=== PATIENT | male | born 1955 | race Caucasian/White ===

== ENCOUNTER 2016-08-28 20:33 | Emergency (ER) | payer MEDICAID ==
[2014-09-02 17:31] VITALS: BMI 39.5
[~2016-08-28 20:33] MED LIST: ALTACE5 MG PO; GLIPIZIDE10 MG PO; GLUCOPHAGE1000 MG PO; HYDROCODONE-APA1 TAB PO; KLOR-CON 1010 MEQ PO; LOPRESSOR25 MG PO; MOBIC7.5 MG PO; NORVASC10 MG PO; PATOWN MISC; TOPAMAX100 MG PO
== END 2016-08-29 02:58 | disposition left against medical advice (07) ==
LOC: D.ER 20:33
DX: T17.228A Food in pharynx causing other injury, initial encounter (principal); X58.XXXA Exposure to other specified factors, initial encounter; Y93.89 Activity, other specified; Y92.89 Other specified places as the place of occurrence of the external cause; I10 Essential (primary) hypertension; E11.9 Type 2 diabetes mellitus without complications

== ENCOUNTER 2017-11-16 13:31 | Emergency (ER) | payer MEDICAID ==
[~2017-11-16] VITALS: Ht 190.5 cm; Wt 156.8 kg
[2017-11-16 14:07] VITALS: Ht 190.5 cm; Wt 156.8 kg
[2017-11-16 14:24] LABS: BASOPHILS 0.1 % (0-2); HEMATOCRIT 42.2 % (42.0-54.0); HEMOGLOBIN 14.2 g/dL (13.5-17.5); IMMATURE GRANULOCYTES 0.1 % (0-5); LYMPHOCYTES 15.6 % (15-50); MCH 31.6 pg (26.0-34.0); MCHC 33.6 g/dL (31.0-37.0); MEAN PLATELET VOLUME 11.3 fL (7.4-10.4); MONOCYTES 8.2 % (2-11); PLATELET COUNT 227 10x3/uL (130-400); RBC 4.49 10x6/uL (4.20-6.10); RDW 13.3 % (11.5-14.5); WBC 8.5 10x3/uL (4.8-10.8)
[2017-11-16 14:32] LABS: APTT 28.2 SECONDS (22.8-39.4); INR 1.03 (0.85-1.17); PROTIME 13.1 SECONDS (11.6-15.0)
[2017-11-16 14:40] LABS: ALBUMIN 3.5 g/dL (3.4-5.0); ANION GAP 16.2 mmol/L (8-16); BILIRUBIN - TOTAL 0.24 mg/dL (0.2-1.3); CALCIUM 9.1 mg/dL (8.5-10.1); CARBON DIOXIDE 21.7 mmol/L (21.0-32.0); CREATININE - SERUM 1.1 mg/dL (0.6-1.3); POTASSIUM - SERUM 3.9 mmol/L (3.5-5.1); PROTEIN - SERUM 7.2 g/dL (6.4-8.2)
[2017-11-16 15:45] VITALS: BP 130/68
== END 2017-11-16 15:46 | disposition home or self-care (01) ==
LOC: D.ER 13:31
PROVIDERS: Family Medicine
DX: K92.1 Melena (principal); E11.9 Type 2 diabetes mellitus without complications; I10 Essential (primary) hypertension

== ENCOUNTER 2017-11-17 15:45 | Emergency (ER) | payer MEDICAID ==
[~2017-11-17] VITALS: Ht 190.5 cm; Wt 147.7 kg
[2017-11-17 16:00] VITALS: Ht 190.5 cm; Wt 147.7 kg
[2017-11-17 16:23] LABS: BASOPHILS 0.3 % (0-2); HEMATOCRIT 37.4 % (42.0-54.0); HEMOGLOBIN 12.5 g/dL (13.5-17.5); IMMATURE GRANULOCYTES 0.3 % (0-5); LYMPHOCYTES 17.4 % (15-50); MCH 31.2 pg (26.0-34.0); MCHC 33.4 g/dL (31.0-37.0); MCV 93.3 fL (80.0-100.0); MEAN PLATELET VOLUME 10.9 fL (7.4-10.4); MONOCYTES 11.3 % (2-11); NEUTROPHILS 67.7 % (40-80); PLATELET COUNT 212 10x3/uL (130-400); RBC 4.01 10x6/uL (4.20-6.10); RDW 13.5 % (11.5-14.5); WBC 7.6 10x3/uL (4.8-10.8)
[2017-11-17 17:32] VITALS: BP 122/80
== END 2017-11-17 17:33 | disposition home or self-care (01) ==
LOC: D.ER 15:45
PROVIDERS: Family Medicine
DX: K92.2 Gastrointestinal hemorrhage, unspecified (principal); E11.9 Type 2 diabetes mellitus without complications; I10 Essential (primary) hypertension

== ENCOUNTER 2018-01-09 19:26 | Observation (INO) | payer MEDICAID ==
[~2018-01-09] VITALS: Ht 190.5 cm; Wt 146.8 kg
[2018-01-09 21:57] LABS: BASOPHILS 0.2 % (0-2); EOSINOPHILS 1.7 % (0-7); HEMATOCRIT 35.9 % (42.0-54.0); IMMATURE GRANULOCYTES 0.3 % (0-5); LYMPHOCYTES 9.9 % (15-50); MCH 26.8 pg (26.0-34.0); MCHC 30.6 g/dL (31.0-37.0); MCV 87.3 fL (80.0-100.0); MEAN PLATELET VOLUME 9.9 fL (7.4-10.4); MONOCYTES 8.9 % (2-11); RBC 4.11 10x6/uL (4.20-6.10); RDW 15.1 % (11.5-14.5); WBC 9.3 10x3/uL (4.8-10.8)
[2018-01-09 22:00] LABS: PLATELET COUNT 328 10x3/uL (130-400)
[2018-01-09 22:06] LABS: INR 1.09 (0.85-1.17); PROTIME 13.7 SECONDS (11.6-15.0)
[2018-01-09 22:16] LABS: ALBUMIN 3.9 g/dL (3.4-5.0); ANION GAP 15.6 mmol/L (8-16); BILIRUBIN - TOTAL 0.18 mg/dL (0.2-1.3); CALCIUM 9.1 mg/dL (8.5-10.1); CARBON DIOXIDE 21.4 mmol/L (21.0-32.0); CREATININE - SERUM 1.2 mg/dL (0.6-1.3)
[2018-01-09] MEDS ORDERED: ZOCOR20 MG PO (23:04)
[2018-01-09] MEDS ORDERED: FLOMAX0.4 MG PO (23:05)
[2018-01-10] VITALS (7 sets, daily range): BP systolic 137–164; BP diastolic 84–100; Ht 190.5 cm; Wt 146.8 kg
[2018-01-10 05:52] LABS: BASOPHILS 0.2 % (0-2); EOSINOPHILS 2.5 % (0-7); HEMATOCRIT 34.1 % (42.0-54.0); HEMOGLOBIN 10.5 g/dL (13.5-17.5); IMMATURE GRANULOCYTES 0.3 % (0-5); LYMPHOCYTES 12.5 % (15-50); MCHC 30.8 g/dL (31.0-37.0); MCV 87.7 fL (80.0-100.0); MEAN PLATELET VOLUME 10.2 fL (7.4-10.4); MONOCYTES 11.8 % (2-11); NEUTROPHILS 72.7 % (40-80); PLATELET COUNT 328 10x3/uL (130-400); RBC 3.89 10x6/uL (4.20-6.10); RDW 15.3 % (11.5-14.5); WBC 10.1 10x3/uL (4.8-10.8)
[2018-01-10 06:26] LABS: ALBUMIN 3.5 g/dL (3.4-5.0); ANION GAP 14.4 mmol/L (8-16); BILIRUBIN - TOTAL 0.25 mg/dL (0.2-1.3); CALCIUM 8.5 mg/dL (8.5-10.1); CARBON DIOXIDE 21.1 mmol/L (21.0-32.0); CREATININE - SERUM 1.1 mg/dL (0.6-1.3); POTASSIUM - SERUM 3.5 mmol/L (3.5-5.1); PROTEIN - SERUM 7.2 g/dL (6.4-8.2)
[2018-01-11 06:13] VITALS: BP 133/74
[2018-01-11 06:26] LABS: BASOPHILS 0 % (0-2); EOSINOPHILS 0 % (0-7); HEMATOCRIT 32.2 % (42.0-54.0); HEMOGLOBIN 9.9 g/dL (13.5-17.5); IMMATURE GRANULOCYTES 0.3 % (0-5); LYMPHOCYTES 6.2 % (15-50); MCH 26.9 pg (26.0-34.0); MCHC 30.7 g/dL (31.0-37.0); MCV 87.5 fL (80.0-100.0); MEAN PLATELET VOLUME 10.2 fL (7.4-10.4); NEUTROPHILS 85.5 % (40-80); PLATELET COUNT 301 10x3/uL (130-400); RBC 3.68 10x6/uL (4.20-6.10)
[2018-01-11 06:30] LABS: WBC 14.4 10x3/uL (4.8-10.8)
[2018-01-11 06:43] LABS: CALC OSMOLALITY 280 mosm/kg (275-300); CALCIUM 8.4 mg/dL (8.5-10.1); CARBON DIOXIDE 22.2 mmol/L (21.0-32.0); CHLORIDE - SERUM 108 mmol/L (98-107); GLUCOSE 96 mg/dL (74-106); POTASSIUM - SERUM 3.6 mmol/L (3.5-5.1); SODIUM 141 mmol/L (136-145); eGFR NON AFRICAN AMERICAN 81 mL/min (90-120)
[2018-01-11 06:46] LABS: UREA NITROGEN 12 mg/dL (7-18)
[2018-01-11 08:48] VITALS: BP 145/88
[2018-01-11] MEDS ORDERED: LEVAQUIN750 MG PO (11:51)
== END 2018-01-11 12:09 | disposition home or self-care (01) ==
LOC: D.ER 19:26 → D.MS 22:19 → OBSVTIME 22:20 → D.MS 01-11 12:09
PROVIDERS: Family Medicine; Internal Medicine Nephrology
DX: T18.128A Food in esophagus causing other injury, initial encounter (principal); X58.XXXA Exposure to other specified factors, initial encounter; R13.10 Dysphagia, unspecified; K22.2 Esophageal obstruction; K29.90 Gastroduodenitis, unspecified, without bleeding; E78.5 Hyperlipidemia, unspecified; E11.9 Type 2 diabetes mellitus without complications; I10 Essential (primary) hypertension; N40.0 Benign prostatic hyperplasia without lower urinary tract symptoms; N17.9 Acute kidney failure, unspecified; D64.9 Anemia, unspecified; G89.29 Other chronic pain; M19.90 Unspecified osteoarthritis, unspecified site

== ENCOUNTER 2018-06-12 12:27 | Inpatient (IN) | payer MEDICAID ==
[~2018-06-12] VITALS: Ht 190.5 cm; Wt 151.5 kg
[2018-06-12] VITALS (11 sets, daily range): BP systolic 118–141; BP diastolic 60–93; BMI 41.8
[~2018-06-12 12:27] MED LIST changes: +FLOMAX0.4 MG PO; +LEVAQUIN750 MG PO; +ZOCOR20 MG PO
--- NOTE | 2018-06-12 14:00 | NUR ---
ARRIVED TO UNIT VIA WHEELCHAIR. ON ROOM AIR. VSS. DENIES DIZZINESS AT THIS TIME. DENIES PAIN. NO FEVER. DENIES PAIN AT THIS TIME. ADMIT ASSESSMENT COMPLETED. HAS CELL PHONE, WATCH, TENNIS SHOES AND CLOTHES. NO NEEDS AT THIS TIME. WILL REVIEW ORDERS.
--- NOTE | 2018-06-12 15:24 | NUR ---
DR. DEUTSCH AWARE OF CONSULT.
[2018-06-12 15:38] LABS: BASOPHILS 0.3 % (0-2); EOSINOPHILS 2.9 % (0-7); HEMATOCRIT 20.6 % (42.0-54.0); IMMATURE GRANULOCYTES 2.1 % (0-5); MCH 26.4 pg (26.0-34.0); MCHC 29.6 g/dL (31.0-37.0); MCV 89.2 fL (80.0-100.0); MEAN PLATELET VOLUME 9.6 fL (7.4-10.4); NEUTROPHILS 68.7 % (40-80); PLATELET COUNT 300 10x3/uL (130-400); RBC 2.31 10x6/uL (4.20-6.10); RDW 21.8 % (11.5-14.5); WBC 8.7 10x3/uL (4.8-10.8)
[2018-06-12 15:40] LABS: HEMOGLOBIN 6.1 g/dL (13.5-17.5)
[2018-06-12 15:41] LABS: APTT 27.1 SECONDS (22.8-39.4); INR 1.09 (0.85-1.17); PROTIME 13.6 SECONDS (11.6-15.0)
[2018-06-12 15:51] LABS: ALBUMIN 3.1 g/dL (3.4-5.0); ANION GAP 13.9 mmol/L (8-16); BILIRUBIN - TOTAL 0.16 mg/dL (0.2-1.3); CALCIUM 8.2 mg/dL (8.5-10.1); CARBON DIOXIDE 25.8 mmol/L (21.0-32.0); CREATININE - SERUM 1.2 mg/dL (0.6-1.3); POTASSIUM - SERUM 3.7 mmol/L (3.5-5.1); PROTEIN - SERUM 6.5 g/dL (6.4-8.2)
[2018-06-12 16:31] LABS: BASOPHILS 1 % (0-2); EOSINOPHILS 2 % (0-7); LYMPHOCYTES 17 % (15-50); MONOCYTES 2 % (2-11); NEUTROPHILS 78 % (40-80)
[2018-06-12 16:32] LABS: TARGET CELLS OCC
[2018-06-12 16:34] LABS: POLYCHROMASIA 1+; TEAR DROP CELLS OCC
--- NOTE | 2018-06-12 16:35 | NUR ---
20G PIV INSERTED ON GRACE BY VENOUS ACCESS NURSE. 1UNIT OF PRBC'S INITITATED AT THIS TIME. BLOOD CONSENT SIGNED AND PLACED IN CHART. BLOOD ORDERED VERIFIED. VSS. SITTING ON SIDE DUE TO PAIN ON HIS BACK.
--- NOTE | 2018-06-12 16:39 | NUR ---
SCHEDULED FOR EGD THIS AFTERNOON. CONSENT FORMS SIGNED AND PLACED IN CHART.
[2018-06-12 16:41] LABS: PLATELET ESTIMATE NORMAL
--- NOTE | 2018-06-12 18:24 | NUR ---
FULL LIQUID TRAY DELIVERED TO ROOM. PT RESTING COMFORTABLY. DR. DEUTSCH SAID TO CALL HER IF THERE ANY PROBLEMS DURING NIGHT.
--- NOTE | 2018-06-12 19:00 | NUR ---
RECEIVED REPROT, ASSDUMED CARE, A&O, DENIES NEEDS, 1ST UNIT FINISHED FLUSHING LINE, WILL START 2ND UNIT SOON, NO S/S OF DISTRESS NOTED, CALL LIGHT IN REACH, BED LOWEST POSITION, URNIAL AT BEDSIDE, WILL CONTINUE TO MONITOR
--- NOTE | 2018-06-12 19:45 | NUR ---
PT REQUESTED POTASSIUM PILL, STATED HE TAKES IT EVERYDAY TWICE A DAY AND WOULD PREFER TO GO AHEAD AND TAKE THE 20MEQ TONIGHT
--- NOTE | 2018-06-12 21:00 | NUR ---
2ND UNIT OF PRBCS INFUSING, NO S/S OF DISTRESS NOTED, CALL LIGHT IN REACH, DENIES NEEDS, WILL CONTINUE POC
--- NOTE | 2018-06-12 23:11 | NUR ---
WATCHING TV, DENIES NEEDS, BREATHING EVEN UNLABORED, CALL LIGHT IN REACH, WILL CONTINUE POC
[2018-06-13] VITALS (16 sets, daily range): BP systolic 121–145; BP diastolic 65–96; Ht 190.5 cm; Wt 151.5 kg
--- NOTE | 2018-06-13 01:05 | NUR ---
SITTING UP ON SIDE OF BED, DENIES NEEDS, CALL LIGHT IN REACH, WILL CONTINUE POC
--- NOTE | 2018-06-13 03:00 | NUR ---
WATCHING TV, DENIES NEEDS, CALL LIGHT IN REACH, NO S/S OF DISTRESS NOTED, WILL CONTINUE POC
--- NOTE | 2018-06-13 04:11 | NUR ---
I AGREE WITH [facility] ASSESSMENT.
[2018-06-13 04:37] LABS: BASOPHILS 0.4 % (0-2); EOSINOPHILS 3.6 % (0-7); HEMATOCRIT 23.1 % (42.0-54.0); IMMATURE GRANULOCYTES 1.9 % (0-5); LYMPHOCYTES 18.5 % (15-50); MCH 26.2 pg (26.0-34.0); MCHC 29.9 g/dL (31.0-37.0); MCV 87.8 fL (80.0-100.0); MEAN PLATELET VOLUME 9.8 fL (7.4-10.4); MONOCYTES 12.1 % (2-11); NEUTROPHILS 63.5 % (40-80); PLATELET COUNT 253 10x3/uL (130-400); RBC 2.63 10x6/uL (4.20-6.10); RDW 21.5 % (11.5-14.5); WBC 7.8 10x3/uL (4.8-10.8)
--- NOTE | 2018-06-13 04:40 | NUR ---
DR DEUTSCH PAGED FOR CRITICAL HGB 6.9, ORDERED 2 UNITS PRBCS
[2018-06-13 04:41] LABS: HEMOGLOBIN 6.9 g/dL (13.5-17.5)
[2018-06-13 04:59] LABS: ANION GAP 12.4 mmol/L (8-16); CALCIUM 8.2 mg/dL (8.5-10.1); CARBON DIOXIDE 25.8 mmol/L (21.0-32.0); CREATININE - SERUM 1.1 mg/dL (0.6-1.3); POTASSIUM - SERUM 4.2 mmol/L (3.5-5.1)
--- NOTE | 2018-06-13 05:00 | NUR ---
A&O, DENIES NEEDS, WATCHING TV, NO S/S OF DISTRESS NOTED, WILL CONTINUE POC
--- NOTE | 2018-06-13 06:47 | NUR ---
FIRST UNIT PRBCS STARTED
--- NOTE | 2018-06-13 07:00 | NUR ---
REPORT RECEIVED INITIAL ASSESSMENT COMPLETE. LARGE OBESE MALE PT ALERT AND ORIENTED X4. RESP EVEN AND NONLABORED ON ROOM AIR O2 SAT 98%. LOOP TACKER WITH ALARMS ON AND AUDIBLE READING SR NO ECTOPY. ABD SOFT AND NONTENDER BOWEL SOUNDS ACTIVE X4 QUADS. SKIN WARM AND DRY. PT HAS ONE PIV TO RIGHT UPPER ARM WITH PRBC CURRENTLY INFUSING. SEE ASSESSMENT FLOWSHEET. VSS NO DISTRESS NOTED CALL LIGHT IN REACH BED IN LOW POSITION
--- NOTE | 2018-06-13 07:15 | NUR ---
ANSWERED CALL LIGHT. PT WANTS DISCONNECTED FROM MONITOR TO STAND UP TO USE URINAL INFORMED HE HAD BLOOD INFUSING AND ASKED IF HE COULD TRY URINAL WHILE SITTING IN BED. PT REFUSES AND STATES HE HAS BEEN GETTING UP WITH BLOOD INFUSING. ASSISSTED PT UP.
--- NOTE | 2018-06-13 07:25 | NUR ---
ANSWERED CALL LIGHT PT STATED HE WAS READY TO BE PLACED BACK ON MONITOR, LEADS HAD BEEN PULLED LOOSE DIFFICULT TO REPLACE LEADS DUE TO PT WEARING T SHIRT, SHORTS AND HIS GIRTH. INFORMED PT WHILE IN ICU A GOWN NEEDED TO BE ABLE TO GET TO HIS CHEST IN EMERGENT SITATIONS AND WITH TIRE BAGGER LEAD REPLACEMENT. PT REFUSES GOWN, PLACED PT BACK ON MONITOR AND BLOOD RESTARTED.
--- NOTE | 2018-06-13 07:45 | NUR ---
ANSWERED CALL LIGHT PT WANTS BLANKET PULLED OVER HIM FROM FOOT OF BED. AND ASKING FOR BREAKFAST TRAY. INFORMED PT WOULD BRING TRAY WHEN THEY WERE BROUGHT UP.
--- NOTE | 2018-06-13 09:07 | NUR ---
ANSWERED CALL LIGHT PT STATING IT WAS TIME FOR HIS MEDICATIONS AND STATED "ITS ALSO TIME FOR MY PAIN MED I CAN HAVE IT EVERY 4 HOURS" THIS NURSE INQUIRED OF PAIN HE STATES "MY BACK HURTS ALL THE TIME AND I TAKE NORCO AT HOME BUT THEY DONT WORK" WHEN ASKED WHAT DOSE HE STATED "" AND HE STATED "I TAKE 3 A DAY BUT THEY NEVER WORK" INFORMED PT TO SPEAK WITH PHYSICIANS CONCERNING PAIN MANAGEMENT.
--- NOTE | 2018-06-13 09:10 | NUR ---
ANSWERED CALL LIGHT PT REQUESTING TO GO TO BATHROOM, INFORMED THERE ARE NO BATHROOMS FOR PATIENT USE AND WITH HIM HERE FOR GI BLEED WITH REALLY LOW H&H RECEIVING 2 UNITS OF PRBC TODAY HE WOULD NEED TO USE BED ROSS INFORMED OF RISKS OF LOC IF B/P DROPPED OUT WHILE ATTEMPTING TO HAVE A BM. EDUCATED AND ASSISTED ONTO BED ROSS.
--- NOTE | 2018-06-13 09:15 | NUR ---
ANSWERED CALL LIGHT PT STATED HE WAS NOT ABLE TO HAVE BM IT WAS JUST GAS BUT HE DID USE BED ROSS FOR URINAL. HE ALSO INQUIRED IF I HAD PAIN MED YET. INFORMED HIM I WAS HEADING TO GET PAIN MED BUT HE ANSWERED THE CALL LIGHT. INFORMED HIM I WOULD BE RIGHT BACK WITH IT
--- NOTE | 2018-06-13 09:17 | NUR ---
DILAUDID 1MG GIVEN SIVP PER PRN EMAR ORDER. VSS NO DISTRESS NOTED. BED LOW POSITION SIDE RAILS UP X3 FOR SAFETY AND BED MOBILITY. ENCOURAGED PT TO CALL FOR ASSISTANCE GETTING UP SINCE PAIN MED CAN CAUSE DIZZINESS HE VERBALIZES UNDERSTANDING
--- NOTE | 2018-06-13 10:00 | NUR ---
ANSWERED CALL LIGHT PT HAD USED URINAL AGAIN AND NEEDED B/P CUFF BACK ON. HE STATED HE DID HAVE RELIEF WITH DILAUDID
--- NOTE | 2018-06-13 11:10 | NUR ---
REASSESSMENT COMPLETE SECOND UNIT OF PRBC CHECKED AND VERIFIED WITH BRITNEY KHAN AND INITIATED VIA RIGHT UPPER ARM PIV.
--- NOTE | 2018-06-13 12:40 | NUR ---
ANSWERED CALL LIGHT PT STATES "THE DOCTOR SAID I WILL BE GETTING OUT OF HERE IN AN HOUR" WHEN ASKED WHICH DOCTOR HE STATED "THE CURLY HEADED ONE" AND CONFIRMED IT WAS DR ALLEN. INFORMED PT I DIDNT THINK HE MEANT FOR DISCHARGE HOME MAYBE TO FLOOR BUT NOT HOME AND I WOULD GO SPEAK WITH TIFFANY AND LET HIM KNOW
--- NOTE | 2018-06-13 12:50 | NUR ---
DR ALLEN ON UNIT FOR ROUNDS ASKED BY THIS NURSE IF PT WAS REALLY TO BE DISCHARGED HOME. HE SAID YEA HE LOOKS GOOD INFORMED HIM HIS HGB WAS LESS THAN 7 AND HCT WAS 23.1 THIS AM WITH ORDERS FOR [address] ALLEN SAID NO D/C HOME BUT HE COULD GO TO FLOOR. DR ALLEN WENT BACK INTO PTS ROOM AND INFORMED OF D/C TO ROOM OUT OF ICU BUT NOT HOME JUST YET
--- NOTE | 2018-06-13 13:00 | NUR ---
ANSWERED CALL LIGHT PT STATES "YOU CAN TAKE THIS TRAY NOW". REMOVED TRAY
--- NOTE | 2018-06-13 13:30 | NUR ---
ANSWERED CALL LIGHT PT STATES "IM READY TO GO TO FLOOR" INFORMED PT IT WOULD BE A LITTLE BIT BEFORE HE WOULD BE TRANSFERRED. BLOOD STILL INFUSING VSS NO DISTRESS NOTED
--- NOTE | 2018-06-13 14:15 | NUR ---
PTS SECOND UNIT OF PRBC COMPLETE. VSS NO REACTION NOTED. PT HAS TRANSFER ORDER AND ROOM HAS BEEN ASSIGNED PT GOING TO 0081. INFORMED PT WOULD CALL REPORT FOR TRANSFER TO ROOM
--- NOTE | 2018-06-13 14:50 | NUR ---
REPORT CALLED TO RADHA NURSE ON FLOOR TAKING PT TO ROOM 2239, SHE TOOK REPORT BUT STATED ROOM NOT READY HOUSEKEEPING HAD JUST ARRIVED TO CLEAN IT STATED SHE WOULD CALL ME BACK SOON ROOM READY. INFORMED PT HAS THE ONE 20 G PIV TO RIGHT UPPER ARM DID NOT RUN THE NS OR PROTONIX WITH PRBC AND PRBC COMPLETED AT 1415
--- NOTE | 2018-06-13 15:09 | NUR ---
DR DEUTSCH PAGED INFORMED OF PT ROOM NUMBER ASSIGNED [id number] ON FLOOR. INFORMED SECOND UNIT OF PRBC WAS COMPLETE AT 1415. SHE STATED SHE WOULD PUT IN POST TRANSFUSION LAB ORDERS.
--- NOTE | 2018-06-13 16:02 | NUR ---
RECIEVED PT FROM ICU, VIA WHEELCHAIR WITH HOSPITAL STAFF, AAOX4, AMBULATORY WITH ASSIST. IV IN RIGHT UPPER ARM, 20 GAUGE, ON ROOM AIR, MONITOR H&H. RECIEVED TWO UNITS OF PRBC TODAY. TOLERATED WELL. DENIES ANY CURRENT NEEDS OR DISCOMFORTS, BED LOWERED AND LOCKED, CALL LIGHT WITHIN REACH. CPOC
[2018-06-13 16:38] LABS: BASOPHILS 0.3 % (0-2); EOSINOPHILS 2.3 % (0-7); IMMATURE GRANULOCYTES 1.1 % (0-5); LYMPHOCYTES 12.2 % (15-50); MCH 26.9 pg (26.0-34.0); MCV 86.6 fL (80.0-100.0); MEAN PLATELET VOLUME 9.9 fL (7.4-10.4); MONOCYTES 10.6 % (2-11); NEUTROPHILS 73.5 % (40-80); PLATELET COUNT 287 10x3/uL (130-400); RDW 19.9 % (11.5-14.5); WBC 8.8 10x3/uL (4.8-10.8)
[2018-06-13 16:39] LABS: RBC 3.35 10x6/uL (4.20-6.10)
--- NOTE | 2018-06-13 19:15 | NUR ---
RECEIVED CARE FROM DAY NURSE. SITTING UP IN BESIDE CHAIR. REPORTS NO NEEDS AT THIS TIME. IV SL TO RIGHT UPPER ARM. CALL LIGHT AT SIDE.
[2018-06-14 02:28] VITALS: BP 111/68
--- NOTE | 2018-06-14 02:57 | NUR ---
I have reviewed this patient and I concur with the Shift Assessment completed by the Licensed Practical Nurse today this shift.
[2018-06-14 04:09] VITALS: BP 112/67
[2018-06-14 06:52] LABS: BASOPHILS 0.3 % (0-2); EOSINOPHILS 4.8 % (0-7); HEMATOCRIT 29.1 % (42.0-54.0); HEMOGLOBIN 8.9 g/dL (13.5-17.5); IMMATURE GRANULOCYTES 0.9 % (0-5); LYMPHOCYTES 16.4 % (15-50); MCH 26.7 pg (26.0-34.0); MCHC 30.6 g/dL (31.0-37.0); MCV 87.4 fL (80.0-100.0); MEAN PLATELET VOLUME 9.9 fL (7.4-10.4); MONOCYTES 14.2 % (2-11); NEUTROPHILS 63.4 % (40-80); PLATELET COUNT 294 10x3/uL (130-400); RBC 3.33 10x6/uL (4.20-6.10); RDW 20.6 % (11.5-14.5)
[2018-06-14 08:10] LABS: ANION GAP 12.3 mmol/L (8-16); CALCIUM 8.8 mg/dL (8.5-10.1); CARBON DIOXIDE 27.5 mmol/L (21.0-32.0); CREATININE - SERUM 1.2 mg/dL (0.6-1.3); POTASSIUM - SERUM 3.8 mmol/L (3.5-5.1)
[2018-06-14 08:32] VITALS: BP 127/80
[2018-06-14] MEDS ORDERED: CARAFATE1 G PO (09:19)
[2018-06-14] MEDS ORDERED: PROTONIX40 MG PO ×2 (09:19→09:27)
--- NOTE | 2018-06-14 10:42 | NUR ---
SITTING UP RIGHT IN BED, RIGHT AC PATENT, SALINE LOCKED, ON ROOM AIR, EVEN UNLABORED BREATHING, ONE SMALL BM THIS MORNING, DARK BROWN, REQUESTED PAIN MEDICATION FOR PAIN LEVEL 7/10 IN LOWER BACK, ADMINISTERED PRN MEDICATION PER ORDER, DENIES ANY CURRENT NEEDS OR DISCOMFORTS, BED LOWERED AND LOCKED, CALL LIGHT WITHIN REACH. CPOC
--- NOTE | 2018-06-14 11:52 | NUR ---
DISCHARGE INSTRUCTIONS GIVEN. VERBALIZES UNDERSTANDING. DISCONTINUED IV IN RIGHT UPPER ARM, IV CATHETER TIP INTACT. DENIES ANY CURRENT QUESTIONS OR CONCERNS. BED LOWERED AND LOCKED, CALL LIGHT WITHIN REACH. CPOC
== END 2018-06-14 11:54 | disposition home or self-care (01) | DRG 378 ==
LOC: D.ICU 12:27 → D.MS 06-13 15:55
PROVIDERS: Internal Medicine Gastroenterology; Internal Medicine Nephrology; ADMIT Emergency Medicine; ATTEND Emergency Medicine
PROC: 0DB68ZX Excision of Stomach, Via Natural or Artificial Opening Endoscopic, Diagnostic (ICD-10-PCS; principal; 2018-06-12 16:38)
DX: K26.4 Chronic or unspecified duodenal ulcer with hemorrhage (principal); D62 Acute posthemorrhagic anemia; Z68.41 Body mass index [BMI] 40.0-44.9, adult; R55 Syncope and collapse; E66.01 Morbid (severe) obesity due to excess calories; I10 Essential (primary) hypertension; E78.5 Hyperlipidemia, unspecified; E11.9 Type 2 diabetes mellitus without complications; M19.90 Unspecified osteoarthritis, unspecified site; K29.00 Acute gastritis without bleeding; K44.9 Diaphragmatic hernia without obstruction or gangrene; K22.2 Esophageal obstruction; T39.395A Adverse effect of other nonsteroidal anti-inflammatory drugs [NSAID], initial encounter